=== PATIENT | female | born 2000 | race Two or more races ===

== ENCOUNTER 2021-10-09 20:57 | Inpatient (IN) | payer MEDICAID ==
[~2021-10-09] VITALS: Ht 127 cm; Wt 54.4 kg
[2021-10-09] MEDS ORDERED: KEPPRA (21:44)
[2021-10-09] MEDS ORDERED: TOPAMAX (21:44)
[2021-10-09] MEDS ORDERED: TOPI25TA PO (21:46)
[2021-10-09] MEDS ORDERED: LEVE500T9 PO (21:46)
--- NOTE | 2021-10-09 21:57 | NUR ---
Patient walked into ER c/o headache from seizure 2 hours ago. Patient is able to walk with steady gait, A/Ox3, not in distress. Patient is accompanied by s.o.
[2021-10-09] MEDS ORDERED: levETIRAcetam 250 MG TABLET PO ONE (22:45)
[2021-10-09 23:13] LABS: HEMATOCRIT 39.5 % (31.2-41.9); MEAN CORPUSCULAR VOLUME 78.3 fL (75.5-95.3); PLATELET COUNT (AUTO) 266 K/uL (179-408)
[2021-10-09 23:29] LABS: CARBON DIOXIDE 24 mmol/L (21-32); CHLORIDE 103 mmol/L (98-107); CREATININE 0.3 mg/dL (0.6-1.3); GLUCOSE 113 mg/dL (74-106); POTASSIUM 3.8 mmol/L (3.5-5.1); UREA NITROGEN, BLOOD 10 mg/dL (7-18)
[2021-10-09 23:33] LABS: ETHANOL < 3 MG/DL (0-0)
[2021-10-09] MEDS ORDERED: levETIRAcetam 250 MG TABLET ONE (23:33)
[2021-10-09 23:37] LABS: ALANINE AMINOTRANSFERASE 32 U/L (14-59); ALKALINE PHOSPHATASE 203 U/L (50-136); ASPARTATE AMINOTRANSFERASE 20 U/L (15-37); BILIRUBIN,DIRECT 0.2 mg/dL (0.0-0.2); BILIRUBIN,TOTAL 0.6 mg/dL (0.2-1.0); TOTAL PROTEIN, SERUM 7.7 g/dL (6.4-8.2)
[2021-10-09 23:41] LABS: *URINE HCG, QUAL NEGATIVE (NEGATIVE)
[2021-10-09 23:48] LABS: *AMPHETAMINE, URINE NEGATIVE (NEGATIVE); *CANNABINOID, URINE NEGATIVE (NEGATIVE); *COCCAINE, URINE NEGATIVE (NEGATIVE); *OPIATE, URINE NEGATIVE (NEGATIVE); *PHENCYCLIDINE SCREEN,URINE NEGATIVE (NEGATIVE)
--- NOTE | 2021-10-10 01:00 | NUR ---
patient's mother at bedside
[2021-10-10] MEDS ORDERED: ACETAMINOPHEN 650 MG/20.3 ML LIQUID UDC PO ONE (01:15)
[2021-10-10] MEDS ORDERED: ACETAMINOPHEN 325 MG TABLET ONE (01:18)
--- NOTE | 2021-10-10 03:06 | NUR ---
Paged Epic panel content writer, waiting for Mike Pirere NP to call back.
[2021-10-10] MEDS ORDERED: REMEDY ESSENTIAL ZINC PASTE 113 GM TP PRN (03:30)
[2021-10-10] MEDS ORDERED: MAGNESIUM HYDROXIDE 30 ML LIQUID UDC PO PRN (03:30)
[2021-10-10] MEDS ORDERED: HYDROCODONE/APAP 5-325MG TABLET PO PRN (03:30)
[2021-10-10] MEDS ORDERED: ACETAMINOPHEN 325 MG TABLET PO PRN (03:30)
[2021-10-10] MEDS ORDERED: ONDANSETRON 4 MG/2 ML VIAL IV PRN (03:30)
[2021-10-10] MEDS ORDERED: LORAZEPAM 2 MG/1 ML VIAL IV PRN (03:45)
[2021-10-10 03:54] LABS: *BILIRUBIN,URIN NEGATIVE (NEGATIVE); *BLOOD, URINE NEGATIVE (NEGATIVE); *CLARITY,URINE CLEAR (CLEAR); *COLOR,URINE YELLOW (YELLOW); *KETONES,URINE NEGATIVE (NEGATIVE); *UROBILINOGEN,URINE 0.2 E.U./dl (NORMAL); LEUKOCYTE ESTERASE ,URINE NEGATIVE (NEGATIVE); NITRITE, URINE NEGATIVE (NEGATIVE); UGLUCOSE NEGATIVE (NEGATIVE)
--- NOTE | 2021-10-10 03:55 | NUR ---
called for bed. no beds available.
--- NOTE | 2021-10-10 04:36 | NUR ---
Patient will go to TELE room 327 under Mike Pierre NP
[2021-10-10] MEDS ORDERED: PROPRANOLOL HCL 1 MG/1 ML VIAL IVP ONE ×2 (07:45→10:45)
--- NOTE | 2021-10-10 08:25 | NUR ---
PT WAS TRANSFERED TO ROOM #317. REPORT WAS GIVEN TO DANCE CHOREOGRAPHER/JILL.
--- NOTE | 2021-10-10 08:35 | NUR ---
ADMITTED FROM HOME A 20 YO FEMALE WITH ADMITTING DX OF SEIZURE, AWAKE ALERT AND ORIENTED X3, ABLE TO PARTICIPATE WITH ADMISSION ASSESSMENT. ROUTINE ADMISSION ASSESSMENT INITIATED. MOM AT BEDSIDE. ROUTINE ORDERS CARRIED
[2021-10-10 08:45] VITALS: BP 122/59
[2021-10-10] MEDS ORDERED: levETIRAcetam 500 MG TABLET PO SCH (09:00)
[2021-10-10] MEDS ORDERED: METHIMAZOLE 5 MG TABLET PO SCH (09:00)
[2021-10-10] MEDS ORDERED: HYDROCORTISONE SOD SUCCINATE 100 MG/2 ML VIAL IV ONE ×2 (11:00→13:00)
[2021-10-10 11:59] VITALS: BP 117/58
[2021-10-10] MEDS: HYDROCORTISONE SOD SUCCINATE 100 MG/2 ML VIAL IV SCH ×2 (13:19→21:04)
[2021-10-10] MEDS: PROPRANOLOL HCL 40 MG TABLET PO SCH ×2 (13:21→21:04)
--- NOTE | 2021-10-10 13:46 | NUR ---
NO ACTIVE SEIZURE NOTED CONTINUE HEART MONITORING HR 120-140/MIN, DENIES PAIN OR SOB
[2021-10-10 16:38] VITALS: BP 115/61
--- NOTE | 2021-10-10 16:57 | NUR ---
SEEN BY NEUROLOGIST GAVE ORDERS AND CARRIED. PATIENT NO FURTHER SEIZURE OBSERVE
[2021-10-10 20:00] VITALS: BP_SYST 130; BP_SYST 136; BP_DIAS 58; BP_DIAS 63
--- NOTE | 2021-10-10 20:00 | NUR ---
Received patient lying in bed. Mother at beside. AAOX4. In no apparent distress. Denies any pain or SOB. O2 sat at 100% on RA. Sinus tachy on tele with HR of 107/min. New midline on right upper arm intact and patent. Seizure precaution observed. Safety measure initiated and call light within reached.
[2021-10-10] MEDS: levETIRAcetam 500 MG TABLET PO SCH (20:25)
[2021-10-10] MEDS: TOPIRAMATE 25 MG TABLET PO SCH (20:25)
[2021-10-11] VITALS (7 sets, daily range): BP systolic 103–119; BP diastolic 43–55
[2021-10-11] MEDS: PROPRANOLOL HCL 40 MG TABLET PO SCH ×3 (05:06→21:15)
[2021-10-11] MEDS: HYDROCORTISONE SOD SUCCINATE 100 MG/2 ML VIAL IV SCH ×3 (05:06→21:15)
--- NOTE | 2021-10-11 05:58 | NUR ---
AAOX4. In no acute distress. No complain of pain or SOB. O2 sat at 93% on RA. Sinus tachy on tele with HR of 110/min. Midline on right upper arm intact and patent. No Seizure episode noted. Seizure precaution maintained. Safety measure maintained and call light within reached. Patient mother remains on bedside.
[2021-10-11 06:19] LABS: HEMATOCRIT 36.1 % (31.2-41.9); MEAN CORPUSCULAR HEMOGLOBIN 26.8 uug (24.7-32.8); MEAN CORPUSCULAR VOLUME 78.6 fL (75.5-95.3); PLATELET COUNT (AUTO) 246 K/uL (179-408)
[2021-10-11 06:42] LABS: CARBON DIOXIDE 22 mmol/L (21-32); CHLORIDE 109 mmol/L (98-107); CREATININE 0.2 mg/dL (0.6-1.3); GLUCOSE 98 mg/dL (74-106); MAGNESIUM 1.9 mg/dL (1.8-2.4); UREA NITROGEN, BLOOD 10 mg/dL (7-18)
--- NOTE | 2021-10-11 08:00 | NUR ---
AWAKE ALERT AND ORIENTED X3 WITH MOM AT BEDSIDE, PATIENT WANTS TO GO HOME, WILL NOTIFY HOSPITALIST. REMAINS SR ON MONITOR. DENIES PAIN, DIZZINESS. CLOSELY MONITORED FOR SEIZURE
[2021-10-11] MEDS: levETIRAcetam 500 MG TABLET PO SCH ×2 (08:33→20:32)
[2021-10-11] MEDS: METHIMAZOLE 5 MG TABLET PO SCH (08:33)
--- NOTE | 2021-10-11 10:35 | NUR ---
HOSPITALIST NOTED LOW POTASSIUM WITH REPLACEMENT ORDER
[2021-10-11] MEDS: POTASSIUM CHLORIDE 20 MEQ TAB.PRT.SR PO SCH ×3 (13:04→16:36)
--- NOTE | 2021-10-11 13:41 | NUR ---
continue plan of care. seen by hospitalit see notes. sr/st on monitor
--- NOTE | 2021-10-11 20:00 | NUR ---
Received patient lying in bed. Father at beside. Sleeping but easily arouse to verbal stimuli. AAOX4. In no apparent distress. Denies any pain or SOB. Sinus tachy on tele with HR of 104/min. Midline on right upper arm intact and patent. Seizure precaution observed. Safety measure initiated and call light within reached.
[2021-10-11] MEDS: TOPIRAMATE 25 MG TABLET PO SCH (20:32)
[2021-10-12 04:09] VITALS: BP 112/54
[2021-10-12] MEDS: PROPRANOLOL HCL 40 MG TABLET PO SCH ×3 (05:18→21:00)
[2021-10-12] MEDS: HYDROCORTISONE SOD SUCCINATE 100 MG/2 ML VIAL IV SCH ×3 (05:18→21:00)
--- NOTE | 2021-10-12 06:27 | NUR ---
Patient slept through out the night. In no apparent distress. No complain of pain or SOB. NSR on tele with HR of 95/min. Midline on right upper arm intact and patent. Seizure precaution maintained. Safety measure maintained and call light within reached.
[2021-10-12 07:07] LABS: CARBON DIOXIDE 24 mmol/L (21-32); CHLORIDE 108 mmol/L (98-107); CREATININE 0.2 mg/dL (0.6-1.3); GLUCOSE 100 mg/dL (74-106); MAGNESIUM 1.9 mg/dL (1.8-2.4); PHOSPHOROUS 4.3 mg/dL (2.5-4.9); POTASSIUM 3.8 mmol/L (3.5-5.1); UREA NITROGEN, BLOOD 10 mg/dL (7-18)
[2021-10-12 07:19] LABS: THYROID STIMULATING HORMONE < 0.007 mIU/mL (0.358-3.740)
[2021-10-12] MEDS: levETIRAcetam 500 MG TABLET PO SCH ×2 (08:17→20:47)
[2021-10-12] MEDS: METHIMAZOLE 5 MG TABLET PO SCH (08:17)
[2021-10-12 11:03] VITALS: BP 112/44
--- NOTE | 2021-10-12 14:34 | NUR ---
Patient sleeping intermittently, AAOx4. Patient has history of epilepsy, no seizure activity noted during this shift. Patient father is in the unit. Dean Alaniz in unit and assessed patient. Patient may possibly discharged tomorrow pending thyroid results. Patient denies any pain, telemetry is SR with HR 93-100. All needs attended, call light within reach.
[2021-10-12 15:15] VITALS: BP 113/52
--- NOTE | 2021-10-12 18:42 | NUR ---
Patient asymptomatic, no episode of seizure activity.Telemetry is Sinus tachycardia, HR 105-109. No c/o discomfort, occasionally walking around in room. Patients mother at her side.
[2021-10-12 20:07] VITALS: BP 137/63
[2021-10-12] MEDS: TOPIRAMATE 25 MG TABLET PO SCH (20:47)
[2021-10-13] VITALS: BP 119/64
[2021-10-13 04:00] VITALS: BP 105/49
--- NOTE | 2021-10-13 05:20 | NUR ---
Patient is free from seizure activity this shift. Slept well with mother at bedside. AAOx4, able to make needs known. Patient on telemetry, NSR with HR at 86 at this time and 80's -90's this shift. Patient in no acute distress. Seizure and aspiration precautions continued. Call light within reach.
[2021-10-13] MEDS: PROPRANOLOL HCL 40 MG TABLET PO SCH ×2 (05:41→13:28)
[2021-10-13] MEDS: HYDROCORTISONE SOD SUCCINATE 100 MG/2 ML VIAL IV SCH ×2 (05:41→13:23)
[2021-10-13] MEDS: METHIMAZOLE 5 MG TABLET PO SCH (08:33)
[2021-10-13] MEDS: levETIRAcetam 500 MG TABLET PO SCH (08:33)
[2021-10-13 11:19] VITALS: BP 124/61
[2021-10-13 13:28] VITALS: BP 142/74
[2021-10-13] MEDS ORDERED: PROP40TA7 PO (13:43)
[2021-10-13] MEDS ORDERED: LEVE500T9 PO (13:43)
[2021-10-13] MEDS ORDERED: METH5TAB34 PO (13:43)
--- NOTE | 2021-10-13 14:21 | NUR ---
Patient is being discharged from unit. IV site removed. ID badge removed. Discharge education provided.
[2021-10-13] MEDS ORDERED: METH4TAB3 PO (14:35)
== END 2021-10-13 14:30 | disposition home or self-care (01) | DRG 53 ==
LOC: ER 21:10 → TELE3 10-10 07:53 → TELE-TD3 10-10 08:30 → TELE3 10-11 10:07
PROVIDERS: ADMIT Nurse Practitioner Acute Care; ATTEND Nurse Practitioner Acute Care
PROC: 05H533Z Insertion of Infusion Device into Right Subclavian Vein, Percutaneous Approach (ICD-10-PCS; principal; 2021-10-10)
PROC: B546ZZA Ultrasonography of Right Subclavian Vein, Guidance (ICD-10-PCS; principal; 2021-10-10)
DX: G40.909 Epilepsy, unspecified, not intractable, without status epilepticus (principal); G92.8 Other toxic encephalopathy; E05.91 Thyrotoxicosis, unspecified with thyrotoxic crisis or storm; Z20.822 Contact with and (suspected) exposure to COVID-19
CPT/HCPCS: 36415; 71045; 83735; 84100; 84443; 84481; 84703; 85025; 93005; A4663; G0378; G0480; J1720; J1800